=== PATIENT | male | born 1985 | race Caucasian/White ===

== ENCOUNTER 2017-04-30 12:24 | Emergency (ER) | payer OTHER ==
[~2017-04-30] VITALS: Ht 172.7 cm; Wt 72.6 kg
[2017-04-30 13:00] VITALS: BP 135/87
--- NOTE | 2017-04-30 13:41 | PHYS DOC ---
Past Medical History Past Medical History: No Pertinent History Past Surgical History: No Surgical History Alcohol Use: Occasionally Drug Use: None Adult General Chief Complaint Chief Complaint: UPPER EXTREMITY PAIN HPI HPI Patient is a 31 year old male presents to the ED complaining of right forearm pain x 5 days. States he works as a [employer] and said it started to hurt after work when he picked up his toolbox. History of previous fx to forearm a few years ago. Describes the pain as sharp. Rates the pain as 8/10. Mild bump to mid -forearm. Denies fever, chest pain, was of breath, abdominal pain, nausea vomiting, dizziness, decreased range of motion, paresthesias. Review of Systems Review of Systems Constitutional: Denies fever or chills [] Eyes: Denies change in visual acuity, redness, or eye pain [] HENT: Denies nasal congestion or sore throat [] Respiratory: Denies cough or shortness of breath [] Cardiovascular: No additional information not addressed in HPI [] GI: Denies abdominal pain, nausea, vomiting, bloody stools or diarrhea [] : Denies dysuria or hematuria [] Musculoskeletal: Complains of right forearm pain. Denies back pain. [] Integument: Denies rash or skin lesions [] Neurologic: Denies headache, focal weakness or sensory changes [] Endocrine: Denies polyuria or polydipsia [] Allergies Allergies Allergies Coded Allergies Type Severity Reaction Last Updated Verified No Known Drug Allergies 04/30/17 No Physical Exam Physical Exam Constitutional: Well developed, well nourished, no acute distress, non-toxic appearance. [] HENT: Normocephalic, atraumatic, bilateral external ears normal, oropharynx moist, no oral exudates, nose normal. [] Eyes: PERRLA, EOMI, conjunctiva normal, no discharge. [] Neck: Normal range of motion, no tenderness, supple, no stridor. [] Cardiovascular:Heart rate regular rhythm, no murmur [] Lungs & Thorax: Bilateral breath sounds clear to auscultation [] Abdomen: Bowel sounds normal, soft, no tenderness, no masses, no pulsatile masses. [] Skin: Warm, dry, no erythema, no rash. [] Back: No tenderness, no CVA tenderness. [] Extremities: MILD RIGHT MID FOREARM SWELLING/TENDERNESS. NV INTACT. NO OVERLYING SKIN CHANGES., no cyanosis, no clubbing, ROM intact, no edema. [] Neurologic: Alert and oriented X 3, normal motor function, normal sensory function, no focal deficits noted. [] Psychologic: Affect normal, judgement normal, mood normal. [] Current Patient Data Vital Signs Vital Signs Date Time Temp Pulse Resp B/P (MAP) Pulse Ox O2 Delivery O2 Flow Rate FiO2 04/30/17 13:00 97.9 105 20 99 Room Air 97.9 EKG EKG [] Radiology/Procedures Radiology/Procedures PROCEDURE: FOREARM RIGHT FOREARM RIGHT Clinical Indication: Arm pain and swelling Comparison: None. Findings: No acute fracture or malalignment. The joint spaces are maintained. Bony mineralization is normal for the patient's age. No significant soft tissue abnormality. No radiopaque foreign body. IMPRESSION: No acute fracture or malalignment. []PROCEDURE: VENOUS UPPER EXTREMITY RIGHT VENOUS UPPER EXTREMITY RIGHT Clinical Indication: Right arm pain and swelling Comparison: None. Technique: Real-time grayscale and color duplex Doppler ultrasound of the right upper extremity was performed. Findings: No DVT seen within the right internal jugular, subclavian, axillary, or brachial veins. The right basilic, cephalic, radial, and ulnar veins are patent. IMPRESSION: No evidence of DVT in the right upper cavity. Course & Med Decision Making Course & Med Decision Making Pertinent Labs and Imaging studies reviewed. (See chart for details) []X-ray negative for acute injury. No DVT. Patient's pain improved. Splint placed. Neurovascular intact post placement. Discussed follow-up with orthopedics early this next week. Discussed reasons to return to the ED. Patient understands and agrees with plan. Dragon Disclaimer Dragon Disclaimer This electronic medical record was generated, in whole or in part, using a voice recognition dictation system. Departure Departure Impression: Primary Impression: Arm injury Additional Impression: Muscle strain Disposition: 01 HOME, SELF-CARE Condition: IMPROVED Referrals: MARIFER ALEJANDRO DO (PCP) PATRICK POSADAS MD Patient Instructions: Muscle Strain Scripts Tramadol Hcl (TRAMADOL HCL) 50 Mg Tablet 1 TAB PO PRN Q6HRS, #12 TAB Prov: TOMI ARMAS 04/30/17 Problem Qualifiers TOMI ARMAS Apr 30, 2017 13:41
--- NOTE | 2017-04-30 15:00 | RAD ---
FOREARM RIGHT Clinical Indication: Arm pain and swelling Comparison: None. Findings: No acute fracture or malalignment. The joint spaces are maintained. Bony mineralization is normal for the patient's age. No significant soft tissue abnormality. No radiopaque foreign body. IMPRESSION: No acute fracture or malalignment.
--- NOTE | 2017-04-30 15:02 | RAD ---
VENOUS UPPER EXTREMITY RIGHT Clinical Indication: Right arm pain and swelling Comparison: None. Technique: Real-time grayscale and color duplex Doppler ultrasound of the right upper extremity was performed. Findings: No DVT seen within the right internal jugular, subclavian, axillary, or brachial veins. The right basilic, cephalic, radial, and ulnar veins are patent. IMPRESSION: No evidence of DVT in the right upper cavity.
[2017-04-30] MEDS ORDERED: TRAM50TA PO (15:10)
== END 2017-04-30 15:33 | disposition home or self-care (01) ==
LOC: ER 12:24
DX: S56.911A Strain of unspecified muscles, fascia and tendons at forearm level, right arm, initial encounter (principal); X50.9XXA Other and unspecified overexertion or strenuous movements or postures, initial encounter; Y93.89 Activity, other specified; Y99.8 Other external cause status; Y92.89 Other specified places as the place of occurrence of the external cause
CPT/HCPCS: 29125; 73090; 93971; 99284-25